=== PATIENT | male | born 1995 | race African-American/Black ===

== ENCOUNTER 2016-08-19 03:19 | Emergency (ER) | payer SELFPAY ==
[~2016-08-19] VITALS: Ht 188 cm; Wt 120.0 kg
[2016-08-19 03:21] VITALS: BP 141/88; PULSE 110; PULSE 91; RESP 18; TEMP 99.5; O2SAT 98
--- NOTE | 2016-08-19 03:55 | PD ---
HPI Chief Complaint: Cold / Flu Symptoms Time Seen by Provider: 03:52 Travel History International Travel<30 days: No Contact w/Intl Traveler<30days: No Traveled to known affect area: No History of Present Illness HPI 21-year-old black male presents to emergency department with complaints of cough and chest pain. He's been sick now for the past 4 days. He has had subjective fever and chills, sore throat, cough, productive green sputum, pleuritic chest wall pain worse with taking a deep breath or coughing. Positive myalgias and arthralgias. He denies any nausea vomiting. No abdominal pain or diarrhea. PFSH Past Medical History Medical History: Denies Significant Hx Tetanus Vaccination: < 5 Years Past Surgical History Surgical History: No Previous Surgery Social History Alcohol Use: No Tobacco Use: No Substance Use: No Allergies-Medications (Allergen,Severity, Reaction): Coded Allergies: No Known Allergies (Unverified , 08/19/16) Reported Meds & Prescriptions Reported Meds & Active Scripts Active Deltasone (Prednisone) 20 Mg Tab 40 Mg PO BID Zithromax (Azithromycin) 250 Mg Tab 250 Mg PO DIRECTED Take 2 tabs (500 mg) on day 1 then 1 tab daily x 4 days. Review of Systems Except as stated in HPI: all other systems reviewed are Neg Physical Exam Narrative GENERAL: Well-developed, obese in no acute distress. Nontoxic appearing. HEAD: Normocephalic, atraumatic. EYES: Pupils equal round and reactive. Extraocular motions intact. No scleral icterus. No injection or drainage. ENT: TMs clear without erythema. The external auditory canals clear. Nose: clear . Posterior pharynx is pink and moist. No tonsillar edema or exudate. Uvula midline. Airway patent. NECK: Trachea midline.Supple, nontender, moves head freely. No central bony tenderness or spasm. CARDIOVASCULAR: Regular rate and rhythm without murmurs, gallops, or rubs. RESPIRATORY: Few scattered rhonchi. No wheezes or Rales. GASTROINTESTINAL: Abdomen soft, non-tender, nondistended. No hepato-splenomegaly , or palpable masses. No guarding. EXTREMITIES: No clubbing, cyanosis, or edema. No joint tenderness, effusion, or edema noted. BACK: Nontender without deformity or crepitance. No flank tenderness. Data Data Last Documented VS Vital Signs Date Time Temp Pulse Resp B/P Pulse Ox O2 Delivery O2 Flow Rate FiO2 08/19/16 04:15 Room Air 08/19/16 03:21 99.5 91 18 141/88 98 Orders Influenzae A/B Antigen (08/19/16 03:55) Chest, Pa & Lat (08/19/16 03:55) Ibuprofen (Motrin) (08/19/16 04:00) Azithromycin (Zithromax) (08/19/16 04:00) MDM Medical Decision Making Medical Screen Exam Complete: Yes Emergency Medical Condition: Yes Medical Record Reviewed: Yes Interpretation(s) Chest x-ray: No acute palmar process. Influenza: Positive for flu a Differential Diagnosis MDM: High Differential diagnoses: Pneumonia, bronchitis, URI, asthma, RAD, legionnaire's disease, SARS, ARDS, influenza, bronchiolitis, RSV,PE,CHF Narrative Course Patient's given Zithromax 500 mg by mouth. Chest x-ray negative for infiltrate. Diagnosis Primary Impression: Influenza A Ruled Out: Bronchitis Patient Instructions: General Instructions Departure Forms: Tests/Procedures, Work Release Special Instructions: No work or school 5 days. Additional Instructions: Rest. Increase fluids. 4 Advil every 6 hours. Robitussin-DM. Followup with your DrGladys in one week. Return to the ER for any problems. Med/Other Pt SpecificInfo: Prescription(s) given Disposition: 01 DISCHARGE HOME Condition: Stable Adonis Ochoa Aug 19, 2016 03:55 Disposition: 01 DISCHARGE HOME Condition: Stable Adonis Ochoa Aug 19, 2016 03:55
[2016-08-19] MEDS ORDERED: AZITHROMYCIN 250 MG TAB PO ONE (04:00)
[2016-08-19] MEDS ORDERED: IBUPROFEN 800 MG TAB PO ONE (04:00)
[2016-08-19] MEDS ORDERED: ZITH250T PO (04:34)
[2016-08-19] MEDS ORDERED: PRED-503 PO (04:34)
--- NOTE | 2016-08-19 07:11 | RADRPT ---
EXAM DATE/TIME: 08/19/2016 04:42 [facility] COMPARISON: No previous studies available for comparison. INDICATIONS : Chest pain. MEDICAL HISTORY : None. SURGICAL HISTORY : None. ENCOUNTER: Initial ACUITY: 1 day PAIN SCORE: 9/10 LOCATION: Bilateral chest FINDINGS: PA and lateral views of the chest demonstrate a normal-sized cardiac silhouette. There is no effusion , consolidation, or pneumothorax. The bones and soft tissues demonstrate no acute abnormality. CONCLUSION: No acute cardiopulmonary abnormality is identified. Steve Sofia MD on August 19, 2016 at 7:08 Board Certified Radiologist. This report was verified electronically.
== END 2016-08-19 05:03 | disposition home or self-care (01) ==
LOC: NEPB 03:19
DX: J09.X2 Influenza due to identified novel influenza A virus with other respiratory manifestations (principal); R07.9 Chest pain, unspecified
CPT/HCPCS: 71020; 87804; 99284

== ENCOUNTER 2016-08-19 20:31 | Emergency (ER) | payer SELFPAY ==
[~2016-08-19] VITALS: Ht 188 cm; Wt 133.0 kg
[~2016-08-19 20:31] MED LIST: PRED-503 PO; ZITH250T PO
[2016-08-19 20:32] VITALS: BP 144/71; PULSE 124; RESP 20; TEMP 101.2; O2SAT 98
[2016-08-19] MEDS ORDERED: IBUPROFEN 800 MG TAB PO ONE (21:00)
[2016-08-19] MEDS ORDERED: SODIUM CHLOR 0.9% 1000 ML INJ 1,000 ML IV ONE ×2 (22:15)
[2016-08-19 22:34] LABS: BASOPHIL % 0.7 % (0.0-2.0); EOSINOPHIL # 0.1 TH/MM3 (0-0.4); HEMATOCRIT 39.6 % (39.0-51.0); HEMO FLAGS DIFF FINAL; LYMPH % 12.4 % (9.0-44.0); LYMPHOCYTE # 0.7 TH/MM3 (1.0-4.8); MEAN CORPUSCULAR HEMOGLOBIN 26.3 PG (27.0-34.0); MEAN CORPUSCULAR HGB CONC 33.3 % (32.0-36.0); MONO % 15.3 % (0.0-8.0); NEUT % 70.6 % (16.0-70.0); PLATELET COUNT 240 TH/MM3 (150-450); RED BLOOD COUNT 5.01 MIL/MM3 (4.50-5.90); WHITE BLOOD COUNT 5.6 TH/MM3 (4.0-11.0)
--- NOTE | 2016-08-19 22:36 | PD ---
HPI Chief Complaint: Cold / Flu Symptoms Time Seen by Provider: 22:02 Travel History International Travel<30 days: No Contact w/Intl Traveler<30days: No Traveled to known affect area: No History of Present Illness HPI Patient's 21-year-old male presents to the emergency department feeling worse after diagnosed with the flu yesterday. Patient states that he is lasted Tylenol approximately 5:00 in the afternoon. Patient states she is feeling worse complains of low back pain as well as cramping in all his muscles. Patient states they discharged him with medicine that would make him feel better and is not work. Per the records patient was given 1 dose of azithromycin in the emergency department. This was given for suspicion of bronchitis. Patient did have a rapid flu test here yesterday which was positive for influenza A. Patient states his been having cough and congestion as well as runny nose. PFSH Past Medical History Medical History: Denies Significant Hx Diminished Hearing: No Immunizations Current: Yes Influenza Vaccination: No Past Surgical History Surgical History: No Previous Surgery Social History Alcohol Use: No Tobacco Use: No Substance Use: No Allergies-Medications (Allergen,Severity, Reaction): Coded Allergies: No Known Allergies (Unverified , 08/19/16) Reported Meds & Prescriptions Reported Meds & Active Scripts Active Review of Systems Except as stated in HPI: all other systems reviewed are Neg Physical Exam Narrative GENERAL: Well-developed well-nourished no apparent distress SKIN: Warm and dry. No rash. HEAD: Atraumatic. Normocephalic. EYES: Pupils equal and round. No scleral icterus. No injection or drainage. ENT: No nasal bleeding or discharge. Mucous membranes pink and moist. TMs clear bilaterally. NECK: Trachea midline. No JVD. Kernig's emergency signs negative, no nuchal rigidity. CARDIOVASCULAR: Regular rhythm mildly tachycardic. No murmurs. RESPIRATORY: No accessory muscle use. Clear to auscultation. Breath sounds equal bilaterally. GASTROINTESTINAL: Abdomen soft, non-tender, nondistended. Hepatic and splenic margins not palpable. MUSCULOSKELETAL: No obvious deformities. No clubbing. No cyanosis. No edema. NEUROLOGICAL: Awake and alert. No obvious cranial nerve deficits. Motor grossly within normal limits. Normal speech. PSYCHIATRIC: Appropriate mood and affect; insight and judgment normal. Data Data Last Documented VS Vital Signs Date Time Temp Pulse Resp B/P Pulse Ox O2 Delivery O2 Flow Rate FiO2 08/19/16 23:31 93 18 128/60 94 Room Air 08/19/16 20:32 101.2 Orders Ibuprofen (Motrin) (08/19/16 21:00) Electrocardiogram (08/19/16 ) Complete Blood Count With Diff (08/19/16 22:09) Sodium Chlor 0.9% 1000 Ml Inj (Ns 1000 M (08/19/16 22:15) Sodium Chlor 0.9% 1000 Ml Inj (Ns 1000 M (08/19/16 22:15) Comprehensive Metabolic Panel (08/19/16 22:09) Lactic Acid (08/19/16 22:29) Labs Laboratory Tests Test 08/19/16 22:00 White Blood Count 5.6 TH/MM3 Red Blood Count 5.01 MIL/MM3 Hemoglobin 13.2 GM/DL Hematocrit 39.6 % Mean Corpuscular Volume 79.0 FL Mean Corpuscular Hemoglobin 26.3 PG Mean Corpuscular Hemoglobin 33.3 % Concent Red Cell Distribution Width 13.0 % Platelet Count 240 TH/MM3 Mean Platelet Volume 8.8 FL Neutrophils (%) (Auto) 70.6 % Lymphocytes (%) (Auto) 12.4 % Monocytes (%) (Auto) 15.3 % Eosinophils (%) (Auto) 1.0 % Basophils (%) (Auto) 0.7 % Neutrophils # (Auto) 4.0 TH/MM3 Lymphocytes # (Auto) 0.7 TH/MM3 Monocytes # (Auto) 0.9 TH/MM3 Eosinophils # (Auto) 0.1 TH/MM3 Basophils # (Auto) 0.0 TH/MM3 CBC Comment DIFF FINAL Differential Comment Sodium Level 135 MEQ/L Potassium Level 3.9 MEQ/L Chloride Level 99 MEQ/L Carbon Dioxide Level 26.0 MEQ/L Anion Gap 10 MEQ/L Blood Urea Nitrogen 12 MG/DL Creatinine 1.12 MG/DL Estimat Glomerular Filtration 98 ML/MIN Rate Random Glucose 101 MG/DL Lactic Acid Level 0.8 mmol/L Calcium Level 8.5 MG/DL Total Bilirubin 0.5 MG/DL Aspartate Amino Transf 38 U/L (AST/SGOT) Alanine Aminotransferase 52 U/L (ALT/SGPT) Alkaline Phosphatase 94 U/L Total Protein 7.7 GM/DL Albumin 3.7 GM/DL MDM Medical Decision Making Medical Screen Exam Complete: Yes Emergency Medical Condition: Yes Differential Diagnosis Dehydration, influenza, fever, sepsis unlikely. Narrative Course Patient roomed emergency department, appears well and in no apparent distress. He was given 2 L of normal saline, ibuprofen. He was feeling much better after that. Labs including CBC and CMP are reassuring, lactic acid negative. He is stable for discharge. Discussed symptomatically management to expect another week of illness. Recommend he have a flu shot next year. Diagnosis Primary Impression: Influenza A Additional Impression: Dehydration Disposition: 01 DISCHARGE HOME Condition: Stable Corona Mccauley MD Aug 19, 2016 22:36
[2016-08-19 23:17] LABS: ALT (GPT) 52 U/L (12-78); ANION GAP 10 MEQ/L (5-15); AST (GOT) 38 U/L (15-37); BLOOD UREA NITROGEN 12 MG/DL (7-18); CHLORIDE 99 MEQ/L (98-107); GLOMERULAR FILTRATION RATE 98 ML/MIN (>89); POTASSIUM 3.9 MEQ/L (3.5-5.1); SODIUM (NA) 135 MEQ/L (136-145)
[2016-08-19 23:19] LABS: ALKALINE PHOSPHATASE 94 U/L (45-117); TOTAL BILIRUBIN ADULT 0.5 MG/DL (0.2-1.0)
[2016-08-19 23:31] VITALS: BP 128/60; PULSE 93; RESP 18; O2SAT 94
--- NOTE | 2016-08-20 14:12 | EKG ---
Date Performed: 08/19/2016 Time Performed: 22:08:48 PTAGE: 21 years EKG: SINUS TACHYCARDIA MARKED RIGHT AXIS DEVIATION MODERATE INTRAVENTRICULAR CONDUCTION DELAY MO DERATE T-WAVE ABNORMALITY, CONSIDER INFERIOR ISCHEMIA ABNORMAL ECG NO PREVIOUS TRACING DOCTOR: Margarito Pro Interpretating Date/Time 08/20/2016 14:11:20
== END 2016-08-19 23:55 | disposition home or self-care (01) ==
LOC: NEPC 20:31
DX: J09.X2 Influenza due to identified novel influenza A virus with other respiratory manifestations (principal); E86.0 Dehydration
CPT/HCPCS: 80053; 83605; 85025; 93005; 99283; J7030

== ENCOUNTER 2017-04-22 02:35 | Emergency (ER) | payer SELFPAY ==
[~2017-04-22] VITALS: Ht 190.5 cm; Wt 135.0 kg
[2017-04-22 02:35] VITALS: BP 183/103; PULSE 124; RESP 16; TEMP 99; O2SAT 97
[2017-04-22] MEDS ORDERED: HYDR2.5%T RECTAL (03:47)
--- NOTE | 2017-04-22 03:54 | PD ---
HPI Chief Complaint: Skin Problem Time Seen by Provider: 03:33 Travel History International Travel<30 days: No Contact w/Intl Traveler<30days: No Traveled to known affect area: No History of Present Illness HPI 21-year-old black male presents to the department with complains of rectal bleeding. He states that he's noted bright red blood per rectum over the last few days. The patient states that he is bisexual. He does engage in receptive anal intercourse. The patient also states that he's noticed a rash on his penis and scrotum over the last 24 hours. He denies any urethral discharge. He denies any fever chills. No nausea vomiting. No hematemesis. No melena PFSH Past Medical History Medical History: Denies Significant Hx Diminished Hearing: No Immunizations Current: Yes Past Surgical History Surgical History: No Previous Surgery Social History Alcohol Use: Yes (RARE) Tobacco Use: No Substance Use: No Allergies-Medications (Allergen,Severity, Reaction): Coded Allergies: No Known Allergies (Unverified Adverse Reaction, Unknown, 04/22/17) Reported Meds & Prescriptions Reported Meds & Active Scripts Active Anusol-Hc Rectal (Hydrocortisone Rectal) 2.5% Cream 1 Applic RECTAL QID Review of Systems General / Constitutional: No: Fever Eyes: No: Visual changes HENT: No: Headaches Cardiovascular: No: Chest Pain or Discomfort Respiratory: No: Shortness of Breath Gastrointestinal: No: Nausea, Vomiting, Diarrhea, Abdominal Pain, Indigestion, Loss of Appetite Genitourinary: No: Dysuria Musculoskeletal: No: Pain Skin: No Rash Neurologic: No: Weakness Psychiatric: No: Depression Endocrine: No: Polydipsia Hematologic/Lymphatic: No: Easy Bruising Physical Exam Narrative GENERAL: Well-developed, well-nourished in no acute distress. Nontoxic appearing. Patient's examined with the nurse present. HEAD: Normocephalic, atraumatic. EYES: Pupils equal round and reactive. Extraocular motions intact. No scleral icterus. No injection or drainage. ENT: TMs clear without erythema. The external auditory canals clear. Nose: clear . Posterior pharynx is pink and moist. No tonsillar edema or exudate. Uvula midline. Airway patent. NECK: Trachea midline.Supple, nontender, moves head freely. No central bony tenderness or spasm. CARDIOVASCULAR: Regular rate and rhythm without murmurs, gallops, or rubs. RESPIRATORY: Clear to auscultation. Breath sounds equal bilaterally. No wheezes , rales, or rhonchi. GASTROINTESTINAL: Abdomen soft, non-tender, nondistended. No hepato-splenomegaly , or palpable masses. No guarding. EXTREMITIES: No clubbing, cyanosis, or edema. No joint tenderness, effusion, or edema noted. BACK: Nontender without deformity or crepitance. No flank tenderness. GENITOURINARY: Circumcised. Testes descended bilaterally without evidence of rotation. Patient has scaly circular and ovoid plaques on the scrotum and shaft of the penis. No urethral discharge. Rectal: Patient has a anal fissure at the 12:00 hour along with a nonthrombosed hemorrhoid at the 5:00 hour. Data Data Last Documented VS Vital Signs Date Time Temp Pulse Resp B/P (MAP) Pulse Ox O2 Delivery O2 Flow Rate FiO2 04/22/17 02:35 99.0 124 16 183/103 (129) 97 Room Air [facility] Medical Decision Making Medical Screen Exam Complete: Yes Emergency Medical Condition: Yes Medical Record Reviewed: Yes Differential Diagnosis Differential diagnoses: Upper GI bleed, lower GI bleed, anal fissure, hemorrhoids, genital warts, tinea, syphilis Narrative Course Patient appears to have an anal fissure along with tinea cruris Diagnosis Primary Impression: Anal fissure Additional Impression: Tinea cruris Patient Instructions: General Instructions Additional Instructions: Rest. Increase fluids. Sits baths. Anusol Lamisil AT 3 times daily for the next 2 weeks. Follow-up with a primary care doctor or the [facility] for further evaluation and STD testing. Med/Other Pt SpecificInfo: Prescription(s) given Scripts Hydrocortisone Rectal (Anusol-Hc Rectal) 2.5% Cream 1 APPLIC RECTAL QID for Itching/Inflammation, #30 GM 0 Refills Prov: Tamiko Randall DO 04/22/17 Disposition: 01 DISCHARGE HOME Condition: Stable Adonis Ochoa Apr 22, 2017 03:54
== END 2017-04-22 04:03 | disposition home or self-care (01) ==
LOC: NEPD 02:35
DX: K60.2 Anal fissure, unspecified (principal); B35.6 Tinea cruris
CPT/HCPCS: 99282